=== PATIENT | female | born 1995 | race Caucasian/White ===

== ENCOUNTER 2019-08-05 09:00 | Emergency (ER) | payer OTHER ==
[~2019-08-05] VITALS: Ht 154.9 cm; Wt 73.6 kg
[2019-08-05 09:15] VITALS: Ht 154.9 cm; Wt 73.6 kg
[2019-08-05] MEDS ORDERED: BCP (09:17)
[2019-08-05] MEDS ORDERED: EC-NAPROSYN500 MG PO (10:20)
[2019-08-05] MEDS ORDERED: STERAPRED DS 1010 MG PO (10:20)
[2019-08-05 11:23] VITALS: BP 136/96
== END 2019-08-05 11:24 | disposition home or self-care (01) ==
LOC: D.ER 09:00
DX: S63.502A Unspecified sprain of left wrist, initial encounter (principal)

== ENCOUNTER → 2020-11-17 | Emergency (ER) | payer OTHER ==
[~2020-11-17] VITALS: Ht 154.9 cm; Wt 72.7 kg
[~2020-11-17] MED LIST: BCP; EC-NAPROSYN500 MG PO; STERAPRED DS 1010 MG PO
[2020-11-17 23:07] VITALS: Ht 154.9 cm; Wt 72.7 kg
== END | disposition home or self-care (01) ==
LOC: D.ER 23:02
DX: S93.602A Unspecified sprain of left foot, initial encounter (principal); X50.1XXA Overexertion from prolonged static or awkward postures, initial encounter; Y93.9 Activity, unspecified; Y92.9 Unspecified place or not applicable